=== PATIENT | female | born 1975 | race Caucasian/White ===

== ENCOUNTER 2024-10-02 15:15 | Outpatient (CLI) | payer BC, SELFPAY ==
[2024-10-02 16:24] LABS: Basophils % 0.3 %; Eosinophils # 0.2 10^3/uL (0.0-0.8); Eosinophils % 2.2 %; Hematocrit 36.3 % (36-47); Lymphocytes # 2.8 10^3/uL (0.8-4.8); Lymphocytes % 38.7 %; Mean Corpuscular HGB Conc 32.8 g/dL (30-55); Mean Corpuscular Hemoglobin 33.1 pg (27-33); Mean Corpuscular Volume 100.8 fl (85-98); Mean Platelet Volume 9.6 fL (7.4-10.4); Monocytes # 0.6 10^3/uL (0.2-0.9); Monocytes % 8.2 %; Neutrophils # 3.66 10^3/uL (1.8-7.7); Neutrophils % 50.1 %; Nucleated Red Blood Cells % 0 %; Platelet Count 242 10^3/cmm (157-399); White Blood Count 7.31 10^3/uL (3.29-11.43)
[2024-10-02 17:52] LABS: Slide Review Slide Review Perform
== END 2024-10-02 15:16 | disposition home or self-care (01) ==
PROVIDERS: Visit Provider Internal Medicine Hematology
DX: Z86.2 Personal history of diseases of the blood and blood-forming organs and certain disorders involving the immune mechanism (principal)
CPT/HCPCS: 36415; 85025